=== PATIENT | male | born 1985 | race African-American/Black ===

== ENCOUNTER 2024-04-11 16:00 | Emergency (ER) | payer MEDICAID, SELFPAY ==
[2024-04-11] VITALS (8 sets, daily range): BP systolic 123–147; BP diastolic 78–104; PULSE 59–78; RESP 13–18; TEMP 36.7–37; O2SAT 94–99; BMI 34.9
--- NOTE | 2024-04-11 16:09 | EKG12_ITS ---
Test Reason : Blood Pressure : / mmHG Vent. Rate : 069 BPM Atrial Rate : 069 BPM P-R Int : 166 ms QRS Dur : 090 ms QT Int : 368 ms P-R-T Axes : 016 045 -27 degrees QTc Int : 394 ms Normal sinus rhythm Nonspecific T wave abnormality Abnormal ECG Confirmed by THOMAS SMITH, EUGENE ([id number]), book editor JOHN PAUL CARREON ([id number]) on 04/12/2024 8:50:16 AM Referred By: ELHAM Confirmed By:EUGENE GUZMAN MD
--- NOTE | 2024-04-11 17:08 | RAD_ITS ---
INDICATION: chest pain EXAMINATION/TECHNIQUE: X-RAY - XR Chest 1 View COMPARISON: None. FINDINGS: The lungs are clear. The cardiomediastinal silhouette is unremarkable. No pleural effusion or pneumothorax. No acute osseous abnormalities. RAD/Chest 1 View (Portable) IMPRESSION: No acute radiographic abnormalities. Electronically Signed: Rajiv Ruano MD at 17:39 EDT ,
[2024-04-11 18:16] LABS: Absolute Lymphocyte Count 3.43 X10^3/uL (0.83-4.51); Absolute Neutrophil Count 2.2 X10^3/uL (2.0-7.7); Basophil# 0.02 X10^3/uL; Basophil% 0.3 % (0-1); Eosinophil# 0.16 X10^3/uL; Eosinophils% 2.5 % (0-5); Hematocrit 44.7 % (40-54); Hemoglobin 14.8 g/dL (13.0-16.5); Lymphocyte # 3.43 X10^3/ul (0.83-4.51); Lymphocyte % 54.3 % (19-41); Mean Corp Hgb Conc 33.1 g/dL (32-36); Mean Corpuscular Hgb 28.9 pg (27.0-32.0); Mean Corpuscular Volume 87.3 fL (80-94); Mean Platelet Vol. 11.4 fl (6.2-12.0); Monocyte# 0.46 X10^3/uL; Monocyte% 7.3 % (0-10); NRBC Flagged by Analyzer 0 % (0-5); Neutrophil # 2.24 X10^3/uL (2.7-7.7); Neutrophil % 35.4 % (47-70); Platelet Count 162 K/mm3 (150-450); RBC Distribution Width CV 12.9 % (11.6-14.6); RBC Distribution Width SD 41.1 fl (35.1-43.9); Red Blood Count 5.12 M/mm3 (4.6-6.2); White Blood Count 6.3 K/mm3 (4.4-11.0)
[2024-04-11 18:31] LABS: Anion Gap 6 (5-15); BUN 15 mg/dL (7-18); BUN/Creat Ratio 12.7 RATIO (10-20); Chloride 107 mmol/L (98-107); Creatinine, Serum 1.18 mg/dL (0.70-1.30); EST Glomerular Filtration Rate 74 mL/min (>60); Est Glom Filt Rate - Afr Amer 89 mL/min (>60); Estimated Creatinine Clearance 90.95 ml/min; Glucose 99 mg/dL (74-106); Potassium 3.9 mmol/L (3.5-5.1); Sodium Level 140 mmol/L (136-145); Troponin-I HS (w/2H Reflex) 4 pg/mL (3.0-78.0)
--- NOTE | 2024-04-11 19:43 | ED.VIS.CHEST ---
HPI History of Present Illness Chief Complaint: Chest Pain Narrative Narrative: Chief complaint and HPI: Chest pain. 38-year-old male presents for evaluation of right-sided chest pain. Right-sided chest pain has been intermittent for 1 week. He describes it as crampy. He denies any trauma or injury. He denies any left-sided chest pain. Pain does not radiate into the neck or down the arms. Patient currently denying pain. He denies any fever, chills, URI symptoms, shortness of breath, abdominal pain, nausea, vomiting. Only past medical history is tobacco abuse. Denies a history of DVT/PE, blood clotting disorder, recent trauma or surgery, exogenous estrogen use, unilateral leg swelling, known malignancy, travel. Review of systems: See HPI Medications: As listed on the chart Allergies: As listed on the chart PFSH: Per chart Vital signs: As listed on the chart. Reviewed. Physical exam: Gen: A&O x3, NAD Head: Normocephalic, atraumatic Eyes: No sclera icterus, conjunctiva clear ENT: Moist mucous membranes Neck: Trachea midline, No JVD CV: RRR, no murmurs, no peripheral edema, right-sided chest pain is reproducible with palpation of the ribs-patient states that this is the same pain Resp: Lungs CTA BL, no w/r/c GI: Abd soft, non-distended, non-tender, no r/r/g Musc: Full ROM, no deformity Skin: Warm, dry Neuro: Alert, oriented, grossly intact, sensation intact Psych: Cooperative, appropriate mood and affect [facility] Allergy/AdvReac Type Severity Reaction Status Date / Time No Known Allergies Allergy Verified 04/11/24 16:01 Social History Smoking Status: Former smoker EXAM Physical Exam Const Vital Signs: 04/11/24 16:01 04/11/24 16:09 04/11/24 19:04 Temperature 98.6 F Temperature Source Oral Pulse Rate 78 65 Respiratory Rate 16 18 Blood Pressure 147/104 H Blood Pressure Mean 118 Pulse Ox 98 99 Oxygen Delivery Method Room Air Room Air 04/11/24 19:15 04/11/24 19:30 04/11/24 19:45 Temperature Temperature Source Pulse Rate 59 L 59 L 62 Respiratory Rate 13 14 18 Blood Pressure 138/93 H 143/91 H 133/81 H Blood Pressure Mean 108 108 94 Pulse Ox 98 98 98 Oxygen Delivery Method 04/11/24 20:00 04/11/24 20:15 04/11/24 21:20 Temperature 98.0 F Temperature Source Pulse Rate 63 66 74 Respiratory Rate 15 16 18 Blood Pressure 123/78 H 131/89 H 143/93 H Blood Pressure Mean 93 104 109 Pulse Ox 97 98 94 Oxygen Delivery Method MDM MDM MDM Narrative Medical decision making narrative: 38-year-old male with history of tobacco abuse presents for evaluation of right-sided chest pain. Chest pain is intermittent. Currently denying chest pain however chest pain is reproducible to palpation of the right ribs. Differential diagnosis includes but is not limited to musculoskeletal strain, rib contusion, ACS, PE, electrolyte abnormality. Cardiac workup ordered. EKG and chest x-ray reviewed see below. CBC unremarkable. D-dimer unremarkable. BMP unremarkable. BNP unremarkable. Troponin x 2 unremarkable. On reevaluation, patient currently denying any chest pain. His heart score is a 2 which puts him at low risk. His chest pain is atypical and reproducible. I suspect more of a chest wall strain. Patient and family member updated all the results and confirmed understanding of plan. Patient is mildly hypertensive here on presentation. He was educated to follow-up with his PCP for this. He confirmed understand the plan. Return precautions explained. Patient stable to discharge home. EKG: Interpreted by me/EM physician: EKG shows normal sinus rhythm. No ST depressions or elevation. Heart rate 69. Patient does have some T wave inversions in the inferior leads. I do not have a previous EKG to compare to Diagnostic: Interpreted by me/EM physician: Chest x-ray without pneumonia, effusion, cardiomegaly, pneumothorax Impression 1. Right sided chest pain, suspect chest wall strain 2. HTN Lab Data Labs: Laboratory Results - last 24 hr 04/11/24 04/11/24 17:58 20:20 WBC 6.3 RBC 5.12 Hgb 14.8 Hct 44.7 MCV 87.3 MCH 28.9 MCHC 33.1 RDW Std Deviation 41.1 RDW Coeff of David 12.9 Plt Count 162 MPV 11.4 Immature Gran % (Auto) 0.200 Neut % (Auto) 35.4 L Lymph % (Auto) 54.3 H [place] % (Auto) 7.3 Eos % (Auto) 2.5 Baso % (Auto) 0.3 Absolute Neuts (auto) 2.2 Absolute Lymphs (auto) 3.43 Nucleated RBC % 0 D-Dimer Quant (PE/DVT) 0.32 Sodium 140 Potassium 3.9 Chloride 107 Carbon Dioxide 27.0 Anion Gap 6 BUN 15 Creatinine 1.18 Estim Creat Clear Calc 90.95 Est GFR (MDRD) Af Amer 89 Est GFR (MDRD) Non-Af 74 BUN/Creatinine Ratio 12.7 Glucose 99 Calcium 9.0 Troponin I High Sens 4 5 B-Natriuretic Peptide 2.4 Radiography Diagnostic Testing: Clinical Impression(s) from Imaging Studies Chest X-Ray 04/11/24 17:08 IMPRESSION: No acute radiographic abnormalities. Electronically Signed: Rajiv Ruano MD at 17:39 EDT , Discharge Plan Triage Chief Complaint: Chest Pain ED Provider: Saravanan Bettencourt Dx/Rx/DC Orders Clinical Impression: Chest pain Instructions: ED Strain Chest Wall, Chest Pain [facility] Stand Alone Forms: Work / School Excuse Primary Care Provider: Bernie Saab NP Referrals: Bernie Saab NP, [employer] [Primary Care Provider] - 3-5 Days Activity Restrictions/Additional Instructions: Ibuprofen and Tylenol as needed for pain. Follow-up with your PCP. Return back to the ED if symptoms change or worsen. Print Language: [place] Disposition Disposition: Home, Self Care Discharge Date/Time: 04/11/24 21:22
[2024-04-11 20:01] LABS: Reflex Troponin-HS? (from REC) Y
[2024-04-11 20:07] LABS: D-Dimer Quantitative (DVT/PE) 0.32 FEU/ug/m (0.27-0.49)
[2024-04-11 20:14] LABS: BNP,B-Type NATRIURETIC PEPTIDE 2.4 pg/mL (0-100)
[2024-04-11 20:49] LABS: Troponin-I HS 5 pg/mL (3.0-78.0)
== END 2024-04-11 21:22 | disposition home or self-care (01) ==
PROVIDERS: Emergency Provider Surgery; PCP Nurse Practitioner Family; Visit Provider Surgery
DX: R07.9 Chest pain, unspecified (principal); I10 Essential (primary) hypertension; Z87.891 Personal history of nicotine dependence
CPT/HCPCS: 71045; 80048; 83880; 84484; 85025; 85379; 93005; 99283; A4216